=== PATIENT | female | born 1990 ===

== ENCOUNTER 2020-08-31 11:46 | Inpatient (IN) | payer MEDICAID ==
[2020-08-31] MEDS ORDERED: Methylergonovine 0.2 MG/1 ML Amp IM PRN (12:04)
[2020-08-31] MEDS ORDERED: Nalbuphine 10 MG/1 ML Vial IVPUSH PRN (12:04)
[2020-08-31] MEDS ORDERED: Citric Acid/Sodium Citrate Solution 30 ML Cup PO ONE (12:04)
[2020-08-31] MEDS ORDERED: Tranexamic Acid 1,000 MG in Sodium Chloride 0.9% 100 ML IV PRN (12:04)
[2020-08-31] MEDS ORDERED: Sodium Chloride 0.9% 10 ML SDV IV PRN (12:04)
[2020-08-31] MEDS ORDERED: Sodium Chloride 0.9% 2.5 ML Syringe FLUSH PRN (12:04)
[2020-08-31] MEDS ORDERED: Sodium Chloride 0.9% 10 ML Syringe FLUSH PRN (12:04)
[2020-08-31] MEDS ORDERED: ceFAZolin 2 GM in Premix Bag 1 BAG IV ONE (12:04)
[2020-08-31] MEDS ORDERED: Butorphanol 1 MG/ML SDV IVPUSH PRN (12:04)
[2020-08-31] MEDS ORDERED: Lidocaine 1% 50 ML MDV INJECT PRN (12:04)
[2020-08-31] MEDS ORDERED: Water For Irrigation,Sterile 1,000 ML Container IRR PRN (12:04)
[2020-08-31] MEDS ORDERED: Carboprost Tromethamine 250 MCG/1 ML Amp IM PRN (12:04)
[2020-08-31] MEDS ORDERED: Misoprostol 200 MCG Tab PO PRN (12:04)
[2020-08-31] MEDS ORDERED: Succinylcholine/Sod PF 100 MG/5 ML SYRINGE IV ONE (12:15)
[2020-08-31] MEDS ORDERED: Oxytocin/0.9 % Sodium Chloride 30 UNIT/500 ML BAG IV SCH (12:15)
[2020-08-31] MEDS ORDERED: Propofol 200 MG/20 ML SDV ONE (12:15)
[2020-08-31] MEDS ORDERED: Lactated Ringers 1,000 ML IV SCH ×2 (12:15)
[2020-08-31] MEDS ORDERED: fentaNYL 100 MCG/2 ML SDV ONE (12:17)
[2020-08-31] MEDS ORDERED: fentaNYL 250 MCG/5 ML SDV ONE (13:02)
[2020-08-31] MEDS ORDERED: Morphine 2 MG/ML SYRINGE IVPUSH ONE (13:02)
[2020-08-31] MEDS ORDERED: Docusate Sodium 100 MG Cap PO PRN (13:35)
[2020-08-31] MEDS ORDERED: Acetaminophen 500 MG Tab PO PRN (13:35)
[2020-08-31] MEDS ORDERED: Bisacodyl 10 MG Supp RECTAL PRN (13:35)
[2020-08-31] MEDS ORDERED: Witch Hazel Medicated Pads 40/Jar TOP PRN (13:35)
[2020-08-31] MEDS ORDERED: Ibuprofen 800 MG Tab PO PRN (13:35)
[2020-08-31] MEDS ORDERED: Benzocaine/Menthol 20%-0.5% Spray 78 GM Cannister TOP PRN (13:35)
[2020-08-31] MEDS ORDERED: oxyCODONE 5 MG Tab PO PRN (13:35)
[2020-08-31] MEDS ORDERED: Lanolin 100% Cream 7 GM Tube TOP PRN (13:35)
--- NOTE | 2020-08-31 13:45 | PCM.DEL ---
<Fatemeh Esquivel - Last Filed: 08/31/20 13:55> L & D Note - General Info Date of Service: 08/31/20 Mother's Due Date: 09/17/20 - Delivery Note Labor: Spontaneous Delivery Method: Spontaneous Vaginal Delivery-Single Infant Delivery Mode: Spontaneous Presentation: Left Occiput Anterior (MAGED) Nuchal Cord: None Anesthesia Type: Local Anesthetic: Lidocaine (Xylocaine) 1% Plain Local Anesthetic Volume: Other (20) Amniotic Fluid Description: Clear Laceration: 1st Degree, Labial (L labial/paraurethral), Perineal Suture type: Vicryl Suture size: 2-0 Placenta: Intact, Spontaneous Cord: 3 Vessels Estimated Blood Loss: 500 Resuscitation Needed: No [place]: Suctioned, Bulb Syringe, Warmer Used Score 1 min: 7 Score 5 min: 8 - General Info Date of Service: 08/31/20 Admission Dx/Problem (Free Text): Vaginal delivery at 37+4 Functional Status: Reports: Pain Controlled - Review of Systems General: Reports: No Symptoms HEENT: Reports: No Symptoms Pulmonary: Reports: No Symptoms Cardiovascular: Reports: No Symptoms Gastrointestinal: Reports: No Symptoms Genitourinary: Reports: No Symptoms Musculoskeletal: Reports: No Symptoms Skin: Reports: No Symptoms Neurological: Reports: No Symptoms Psychiatric: Reports: No Symptoms - Patient Data Weight - Most Recent: 63.503 kg Lab Results Last 24 Hours: Laboratory Results - last 24 hr 08/31/20 08/31/20 08/31/20 Range/Units 12:20 12:20 12:24 WBC 10.79 (4.0-11.0) K/uL RBC 3.92 L (4.30-5.90) M/uL Hgb 11.9 L (12.0-16.0) g/dL Hct 35.9 L (36.0-46.0) % MCV 91.6 (80.0-98.0) fL MCH 30.4 (27.0-32.0) pg MCHC 33.1 (31.0-37.0) g/dL RDW Std Deviation 47.1 (28.0-62.0) fl RDW Coeff of Alejandro 14 (11.0-15.0) % Plt Count 198 (150-400) K/uL MPV 11.60 (7.40-12.00) fL Nucleated RBC % 0.0 /100WBC Nucleated RBCs # 0 K/uL SARS-CoV-2 RNA (RENU) NEGATIVE (NEGATIVE) Blood Type A POSITIVE Antibody Screen NEGATIVE Med Orders - Current: Current Medications Acetaminophen (Tylenol Extra Strength) 1,000 mg PO Q6H PRN PRN Reason: Pain Benzocaine/Menthol (Dermoplast Pain Relief 20%-0.5% [place]) 78 gm TOP ASDIRECTED PRN PRN Reason: Perineal Comfort Measure Bisacodyl (Dulcolax) 10 mg RECTAL ONETIME PRN PRN Reason: Constipation Butorphanol Tartrate (Stadol) 1 mg IVPUSH Q1H PRN PRN Reason: Pain Carboprost Tromethamine (Hemabate Ds) 250 mcg IM ASDIRECTED PRN PRN Reason: Post Hemorrhage Docusate Sodium (Colace) 100 mg PO BID PRN PRN Reason: Constipation Emollient Ointment (Lansinoh Hpa) 0 gm TOP ASDIRECTED PRN PRN Reason: Sore Nipples Oxytocin/Sodium Chloride (Oxytocin 30 Unit/500 Ml-Ns) 30 unit in 500 mls @ 999 mls/hr IV TITRATE [facility] Last Admin: 08/31/20 12:57 Dose: 999 mls/hr Documented by: Tranexamic Acid 1,000 mg/ (Sodium Chloride) 110 mls @ 660 mls/hr IV ONETIME PRN PRN Reason: Bleeding Lactated Ringer's (Ringers, Lactated) 1,000 mls @ 500 mls/hr IV BOLUS [facility] Last Admin: 08/31/20 12:00 Dose: 500 mls/hr Documented by: Lactated Ringer's (Ringers, Lactated) 1,000 mls @ 150 mls/hr IV ASDIRECTED [facility] Ibuprofen (Motrin) 800 mg PO Q8H PRN PRN Reason: Pain Lidocaine HCl (Xylocaine 1%) 50 ml INJECT ONETIME PRN PRN Reason: Laceration repair Methylergonovine Maleate (Methergine) 0.2 mg IM ASDIRECTED PRN PRN Reason: Post Hemorrhage Misoprostol (Cytotec) 200 mcg PO ONETIME PRN PRN Reason: Post Hemorrhage Nalbuphine HCl (Nubain) 10 mg IVPUSH Q1H PRN PRN Reason: Pain (severe 7-10) Oxycodone HCl (Oxycodone) 5 mg PO Q2H PRN PRN Reason: Pain Sertraline HCl (Zoloft) 75 mg PO DAILY VY Sodium Chloride (Saline Flush) 10 ml FLUSH ASDIRECTED PRN PRN Reason: Keep Vein Open Sodium Chloride (Saline Flush) 2.5 ml FLUSH ASDIRECTED PRN PRN Reason: Keep Vein Open Sodium Chloride (Normal Saline) 10 ml IV ASDIRECTED PRN PRN Reason: IV Use Sterile Water (Sterile Water For Irrigation) 1,000 ml IRR ASDIRECTED PRN PRN Reason: delivery Zaira Torres (Tucks) 1 pad TOP ASDIRECTED PRN PRN Reason: comfort care Discontinued Medications Citric Acid/Sodium Citrate (Bicitra Solution) 30 ml PO ONETIME ONE Stop: 08/31/20 12:05 Fentanyl (Sublimaze) Confirm Administered Dose 100 mcg .ROUTE .STK-MED ONE Stop: 08/31/20 12:18 Fentanyl (Sublimaze) Confirm Administered Dose 250 mcg .ROUTE .STK-MED ONE Stop: 08/31/20 13:03 Cefazolin Sodium/Dextrose 2 gm (/ Premix) 50 mls @ 100 mls/hr IV ONETIME ONE Stop: 08/31/20 12:33 Lidocaine HCl (Xylocaine-Mpf 1%) Confirm Administered Dose 5 ml .ROUTE .STK-MED ONE Stop: 08/31/20 12:15 Morphine Sulfate (Morphine) 2 mg IVPUSH ONETIME ONE Stop: 08/31/20 13:03 Last Admin: 08/31/20 13:14 Dose: 2 mg Documented by: Propofol (Diprivan 20 Ml) Confirm Administered Dose 200 mg .ROUTE .STK-MED ONE Stop: 08/31/20 12:16 - Exam General: Alert, Oriented HEENT: Pupils Equal, Pupils Reactive, EOMI, Mucous Membr. Moist/[place] Neck: Supple Lungs: Clear to Auscultation, Normal Respiratory Effort Cardiovascular: Regular Rate, Regular Rhythm GI/Abdominal Exam: Soft, No Organomegaly, No Distention, No Mass, Other (appropriately tender) (Female) Exam: Other (1st degree hemostatic perineal laceration, left labial/paraurethral laceration repaired) Back Exam: Normal Inspection, Full Range of Motion Extremities: Normal Inspection, Normal Range of Motion, Non-Tender, No Pedal Edema, Normal Capillary Refill Skin: Warm, Dry, Intact Wound/Incisions: Healing Well Neurological: No New Focal Deficit Psy/Mental Status: Alert, Normal Affect, Normal Mood - Problem List & Annotations (1) Vaginal after , delivered, current hospitalization SNOMED Code(s): 939450596 Code(s): O34.219 - MATERNAL CARE FOR UNSP TYPE SCAR FROM PREVIOUS D EL Status: Acute Current Visit: Yes Onset Date: ~08/31/20 - Problem List Review Problem List Initiated/Reviewed/Updated: Yes - Assessment Assessment:: 37+4 delivered via with a viable male , apgars 7 & 8. Mom given 2mg IV morphine post-delivery for pain, and 20cc 1% local lidocaine used prior to labial laceration repair. Mom and baby doing well - skin to skin. - Plan Plan:: 1. Routine pp cares 2. Pain control - ibuprofen/tylenol <Eliza Cartwright - Last Filed: 09/01/20 09:01> L & D Note - Delivery Note Episiotomy Type: None - Patient Data Vitals - Most Recent: Last Vital Signs Temp 36.6 C 09/01/20 08:34 Pulse 81 09/01/20 08:34 Resp 16 09/01/20 08:34 BP 106/72 09/01/20 08:34 Pulse Ox 97 09/01/20 08:34 Lab Results Last 24 Hours: Laboratory Results - last 24 hr 08/31/20 08/31/20 08/31/20 Range/Units 12:20 12:20 12:24 WBC 10.79 (4.0-11.0) K/uL RBC 3.92 L (4.30-5.90) M/uL Hgb 11.9 L (12.0-16.0) g/dL Hct 35.9 L (36.0-46.0) % MCV 91.6 (80.0-98.0) fL MCH 30.4 (27.0-32.0) pg MCHC 33.1 (31.0-37.0) g/dL RDW Std Deviation 47.1 (28.0-62.0) fl RDW Coeff of Alejandro 14 (11.0-15.0) % Plt Count 198 (150-400) K/uL MPV 11.60 (7.40-12.00) fL Nucleated RBC % 0.0 /100WBC Nucleated RBCs # 0 K/uL Cord ABG pH (7.18-7.38) Cord ABG Base Excess (-10--2) Cord VBG pH (7.25-7.45) Cord VBG Base Excess (-10--2) SARS-CoV-2 RNA (RENU) NEGATIVE (NEGATIVE) Blood Type A POSITIVE Antibody Screen NEGATIVE 08/31/20 09/01/20 Range/Units 12:55 05:20 WBC (4.0-11.0) K/uL RBC (4.30-5.90) M/uL Hgb 9.5 L (12.0-16.0) g/dL Hct 28.9 L (36.0-46.0) % MCV (80.0-98.0) fL MCH (27.0-32.0) pg MCHC (31.0-37.0) g/dL RDW Std Deviation (28.0-62.0) fl RDW Coeff of Alejandro (11.0-15.0) % Plt Count (150-400) K/uL MPV (7.40-12.00) fL Nucleated RBC % /100WBC Nucleated RBCs # K/uL Cord ABG pH 7.043 L (7.18-7.38) Cord ABG Base Excess -15 L (-10--2) Cord VBG pH 7.101 L (7.25-7.45) Cord VBG Base Excess -11 L (-10--2) SARS-CoV-2 RNA (RENU) (NEGATIVE) Blood Type Antibody Screen Med Orders - Current: Current Medications Acetaminophen (Tylenol Extra Strength) 1,000 mg PO Q6H PRN PRN Reason: Pain Benzocaine/Menthol (Dermoplast Pain Relief 20%-0.5% [place]) 78 gm TOP ASDIRECTED PRN PRN Reason: Perineal Comfort Measure Last Admin: 08/31/20 18:33 Dose: 1 canister Documented by: Bisacodyl (Dulcolax) 10 mg RECTAL ONETIME PRN PRN Reason: Constipation Butorphanol Tartrate (Stadol) 1 mg IVPUSH Q1H PRN PRN Reason: Pain Carboprost Tromethamine (Hemabate Ds) 250 mcg IM ASDIRECTED PRN PRN Reason: Post Hemorrhage Docusate Sodium (Colace) 100 mg PO BID PRN PRN Reason: Constipation Last Admin: 09/01/20 08:43 Dose: 100 mg Documented by: Emollient Ointment (Lansinoh Hpa) 0 gm TOP ASDIRECTED PRN PRN Reason: Sore Nipples Oxytocin/Sodium Chloride (Oxytocin 30 Unit/500 Ml-Ns) 30 unit in 500 mls @ 999 mls/hr IV TITRATE [facility] Last Admin: 08/31/20 12:57 Dose: 999 mls/hr Documented by: Tranexamic Acid 1,000 mg/ (Sodium Chloride) 110 mls @ 660 mls/hr IV ONETIME PRN PRN Reason: Bleeding Lactated Ringer's (Ringers, Lactated) 1,000 mls @ 500 mls/hr IV BOLUS [facility] Last Admin: 08/31/20 12:00 Dose: 500 mls/hr Documented by: Lactated Ringer's (Ringers, Lactated) 1,000 mls @ 150 mls/hr IV ASDIRECTED [facility] Ibuprofen (Motrin) 800 mg PO Q8H PRN PRN Reason: Pain Last Admin: 08/31/20 14:33 Dose: 800 mg Documented by: Lidocaine HCl (Xylocaine 1%) 50 ml INJECT ONETIME PRN PRN Reason: Laceration repair Methylergonovine Maleate (Methergine) 0.2 mg IM ASDIRECTED PRN PRN Reason: Post Hemorrhage Misoprostol (Cytotec) 200 mcg PO ONETIME PRN PRN Reason: Post Hemorrhage Nalbuphine HCl (Nubain) 10 mg IVPUSH Q1H PRN PRN Reason: Pain (severe 7-10) Oxycodone HCl (Oxycodone) 5 mg PO Q2H PRN PRN Reason: Pain Sertraline HCl (Zoloft) 75 mg PO DAILY [facility] Last Admin: 09/01/20 08:43 Dose: 75 mg Documented by: Sodium Chloride (Saline Flush) 10 ml FLUSH ASDIRECTED PRN PRN Reason: Keep Vein Open Sodium Chloride (Saline Flush) 2.5 ml FLUSH ASDIRECTED PRN PRN Reason: Keep Vein Open Sodium Chloride (Normal Saline) 10 ml IV ASDIRECTED PRN PRN Reason: IV Use Sterile Water (Sterile Water For Irrigation) 1,000 ml IRR ASDIRECTED PRN PRN Reason: delivery Zaira Torres ([place]) 1 pad TOP ASDIRECTED PRN PRN Reason: comfort care Last Admin: 08/31/20 18:33 Dose: 1 tub Documented by: Discontinued Medications Citric Acid/Sodium Citrate (Bicitra Solution) 30 ml PO ONETIME ONE Stop: 08/31/20 12:05 Fentanyl (Sublimaze) Confirm Administered Dose 100 mcg .ROUTE .STK-MED ONE Stop: 08/31/20 12:18 Fentanyl (Sublimaze) Confirm Administered Dose 250 mcg .ROUTE .STK-MED ONE Stop: 08/31/20 13:03 Cefazolin Sodium/Dextrose 2 gm (/ Premix) 50 mls @ 100 mls/hr IV ONETIME ONE Stop: 08/31/20 12:33 Lidocaine HCl (Xylocaine-Mpf 1%) Confirm Administered Dose 5 ml .ROUTE .STK-MED ONE Stop: 08/31/20 12:15 Morphine Sulfate (Morphine) 2 mg IVPUSH ONETIME ONE Stop: 08/31/20 13:03 Last Admin: 08/31/20 13:14 Dose: 2 mg Documented by: Propofol (Diprivan 20 Ml) Confirm Administered Dose 200 mg .ROUTE .STK-MED ONE Stop: 08/31/20 12:16 - Problem List & Annotations (1) Vaginal after , delivered, current hospitalization SNOMED Code(s): 141744277 Code(s): O34.219 - MATERNAL CARE FOR UNSP TYPE SCAR FROM PREVIOUS DEL Status: Acute Current Visit: Yes Onset Date: ~08/31/20 - My Orders Last 24 Hours: My Active Orders 08/31/20 Lunch Regular Diet [DIET] 08/31/20 12:04 Butorphanol [Stadol] 1 mg IVPUSH Q1H PRN Carboprost Tromethamine [Hemabate DS] 250 mcg IM ASDIRECTED PRN Lidocaine 1% [Xylocaine 1%] 50 ml INJECT ONETIME PRN Methylergonovine [Methergine] 0.2 mg IM ASDIRECTED PRN Nalbuphine [Nubain] 10 mg IVPUSH Q1H PRN Sodium Chloride 0.9% [Normal Saline] 10 ml IV ASDIRECTED PRN Sodium Chloride 0.9% [Saline Flush] 10 ml FLUSH ASDIRECTED PRN Sodium Chloride 0.9% [Saline Flush] 2.5 ml FLUSH ASDIRECTED PRN Tranexamic Acid [Cyklokapron] 1,000 mg Sodium Chloride 0.9% [Normal Saline] 100 ml IV ONETIME Water For Irrigation,Sterile [Sterile Water for Irrigation] 1,000 ml IRR ASDIRECTED PRN miSOPROStoL [Cytotec] 200 mcg PO ONETIME PRN Resuscitation Status Routine 08/31/20 12:05 Patient Status [ADT] Routine Vital Signs [RC] PER UNIT ROUTINE Scalp Electrode [WOMSER] Per Unit Routine Peripheral IV Insertion Adult [OM.PC] Routine Peripheral IV Insertion Adult [OM.PC] Routine Schedule Procedure [COMM] Per Unit Routine 08/31/20 12:09 Notify Provider Vital Signs [RC] PRN 08/31/20 12:15 Lactated Ringers [Ringers, Lactated] 1,000 ml IV ASDIRECTED Lactated Ringers [Ringers, Lactated] 1,000 ml IV BOLUS Oxytocin/0.9 % Sodium Chloride [Oxytocin 30 Unit/500 ML-NS] 30 unit in 500 ml IV TITRATE 08/31/20 12:20 RPR (SYPHILIS SERO) W/ RFLX [REF] Routine 08/31/20 13:35 Patient Status [ADT] Routine May Shower [RC] ASDIRECTED Notify Provider Vital Signs [RC] ASDIRECTED Up ad Lila [RC] ASDIRECTED Acetaminophen [Tylenol Extra Strength] 1,000 mg PO Q6H PRN Benzocaine/Menthol [Dermoplast Pain Relief 20%-0.5% [place]] 78 gm TOP ASDIRECTED PRN Docusate Sodium [Colace] 100 mg PO BID PRN Ibuprofen [Motrin] 800 mg PO Q8H PRN Lanolin [Lansinoh HPA] See Dose Instructions TOP ASDIRECTED PRN bisacodyL [Dulcolax] 10 mg RECTAL ONETIME PRN oxyCODONE 5 mg PO Q2H PRN witch Guilherme [Tucks] 1 pad TOP ASDIRECTED PRN Assess Lochia [WOMSER] Per Unit Routine Assess Uterine Involution [WOMSER] Per Unit Routine Peripheral IV Discontinue [OM.PC] Routine 08/31/20 13:36 Ice Therapy [OM.PC] Per Unit Routine Perineal Care [OM.PC] Per Unit Routine Sitz Bath [OM.PC] Per Unit Routine 09/01/20 09:00 Sertraline [Zoloft] 75 mg PO DAILY - Plan Plan:: I have reviewed and agree with the above. Patient presented in labor at 8cm dilated. Declined repeat section and desired trial of labor after . Successful vaginal after .
--- NOTE | 2020-08-31 14:50 | PCM.SN.2 ---
- Free Text/Narrative Note: Patient seen by Dr. Paz, awaiting his preanesthesia assessment. We were called for emergency section, but Dr. Cartwright ruptured patient's membranes, and patient delivered vaginally. Anesthesia and OR staff was on standby, and immediately available. Time: [id number]
--- NOTE | 2020-08-31 15:46 | OR ---
SURGEON: Eliza Cartwright MD DATE OF PROCEDURE: 08/31/2020 PREOPERATIVE DIAGNOSES: 1. A 30-year-old G3, P1-0-1-1 at 37 weeks and 4 days' gestation. 2. Labor. 3. History of delivery x1. 4. Group B Streptococcus negative. POSTOPERATIVE DIAGNOSES: 1. A 30-year-old G3, P1-0-1-1 at 37 weeks and 4 days' gestation. 2. Labor. 3. History of delivery x1. 4. Group B Streptococcus negative. PROCEDURE: Vaginal after delivery. PRIMARY SURGEON: Eliza Cartwright MD ANESTHESIA: Lidocaine for repair. ESTIMATED BLOOD LOSS: 700 mL. FINDINGS: Live male in cephalic presentation. scores 7 and 8 at one and five minutes respectively. Weight 2770g. First-degree perineal and left periurethral lacerations. Fundus firm and below the umbilicus with minimal bleeding. INDICATIONS: This is a 30-year-old G3, P1-0-1-1 who presented at 37 weeks and 4 days gestation complaining of contractions and vaginal bleeding. Upon presentation, her cervix was found to be 8 cm dilated with intact membranes, and she was nella every 2 to 3 minutes. She was admitted to Labor and Delivery. The risks and benefits of trial of labor after and repeat delivery were reviewed with the patient. Per Anesthesia if the patient needed to proceed with delivery, she would need general anesthesia. After discussion of the risks including 1% chance of uterine rupture, the patient decided actually to proceed with vaginal delivery. Artificial rupture of membranes occurred with clear fluid noted. She was 9 cm dilated. She progressed to complete cervical dilation. DESCRIPTION OF PROCEDURE: The patient began pushing with the 's head at 0 station, and with contractions and pushing, the heart rate was noted to be in the 70s, however, would recover to baseline between contractions. The patient was in pain, and we discussed that she was unable to receive IV pain medications due to imminent delivery. She was encouraged to push and after several minutes began pushing adequately. Over the next 2 contractions, the patient pushed and delivered a live male . Head was delivered followed quickly by the shoulders and remainder of the body. Infant was placed on maternal abdomen. After approximately 60 seconds, the cord was clamped and cut, and the infant was taken to the warmer for evaluation by the nursing tube sizer operator. 2 mg of morphine IV were given to the patient. The perineum was inspected, and the above lacerations were noted. These were infiltrated with 1% lidocaine and repaired to anatomy and hemostasis. The fundus was firm and below the umbilicus with minimal bleeding. The patient and infant tolerated the delivery well. [id number] / MODL /[id number] [id number]
--- NOTE | 2020-09-01 08:32 | PCM.PNPP ---
<Fatemeh Esquivel - Last Filed: 09/01/20 08:34> - General Info Date of Service: 09/01/20 Admission Dx/Problem (Free Text): Vaginal delivery Subjective Update: Patient doing well this am. Pain controlled with PO pain meds. Voiding/lochia appropriate. Ambulating without difficulty. BF/pumping - doing fair. Would like to go home today. Functional Status: Reports: Pain Controlled - Review of Systems General: Reports: No Symptoms HEENT: Reports: No Symptoms Pulmonary: Reports: No Symptoms Cardiovascular: Reports: No Symptoms Gastrointestinal: Reports: No Symptoms Genitourinary: Reports: No Symptoms Musculoskeletal: Reports: No Symptoms Skin: Reports: No Symptoms Neurological: Reports: No Symptoms Psychiatric: Reports: No Symptoms - General Info Date of Service: 09/01/20 - Patient Data Vital Signs - Most Recent: Last Vital Signs Temp 97.2 F 09/01/20 04:11 Pulse 95 09/01/20 04:11 Resp 16 09/01/20 04:11 BP 116/73 09/01/20 04:11 Pulse Ox 97 09/01/20 04:11 Weight - Most Recent: 86.183 kg Lab Results - Last 24 Hours: Laboratory Results - last 24 hr 08/31/20 08/31/20 08/31/20 Range/Units 12:20 12:20 12:24 WBC 10.79 (4.0-11.0) K/uL RBC 3.92 L (4.30-5.90) M/uL Hgb 11.9 L (12.0-16.0) g/dL Hct 35.9 L (36.0-46.0) % MCV 91.6 (80.0-98.0) fL MCH 30.4 (27.0-32.0) pg MCHC 33.1 (31.0-37.0) g/dL RDW Std Deviation 47.1 (28.0-62.0) fl RDW Coeff of Alejandro 14 (11.0-15.0) % Plt Count 198 (150-400) K/uL MPV 11.60 (7.40-12.00) fL Nucleated RBC % 0.0 /100WBC Nucleated RBCs # 0 K/uL Cord ABG pH (7.18-7.38) Cord ABG Base Excess (-10--2) Cord VBG pH (7.25-7.45) Cord VBG Base Excess (-10--2) SARS-CoV-2 RNA (RENU) NEGATIVE (NEGATIVE) Blood Type A POSITIVE Antibody Screen NEGATIVE 08/31/20 09/01/20 Range/Units 12:55 05:20 WBC (4.0-11.0) K/uL RBC (4.30-5.90) M/uL Hgb 9.5 L (12.0-16.0) g/dL Hct 28.9 L (36.0-46.0) % MCV (80.0-98.0) fL MCH (27.0-32.0) pg MCHC (31.0-37.0) g/dL RDW Std Deviation (28.0-62.0) fl RDW Coeff of Alejandro (11.0-15.0) % Plt Count (150-400) K/uL MPV (7.40-12.00) fL Nucleated RBC % /100WBC Nucleated RBCs # K/uL Cord ABG pH 7.043 L (7.18-7.38) Cord ABG Base Excess -15 L (-10--2) Cord VBG pH 7.101 L (7.25-7.45) Cord VBG Base Excess -11 L (-10--2) SARS-CoV-2 RNA (RENU) (NEGATIVE) Blood Type Antibody Screen Med Orders - Current: Current Medications Acetaminophen (Tylenol Extra Strength) 1,000 mg PO Q6H PRN PRN Reason: Pain Benzocaine/Menthol (Dermoplast Pain Relief 20%-0.5% [place]) 78 gm TOP ASDIRECTED PRN PRN Reason: Perineal Comfort Measure Last Admin: 08/31/20 18:33 Dose: 1 canister Documented by: Bisacodyl (Dulcolax) 10 mg RECTAL ONETIME PRN PRN Reason: Constipation Butorphanol Tartrate (Stadol) 1 mg IVPUSH Q1H PRN PRN Reason: Pain Carboprost Tromethamine (Hemabate Ds) 250 mcg IM ASDIRECTED PRN PRN Reason: Post Hemorrhage Docusate Sodium (Colace) 100 mg PO BID PRN PRN Reason: Constipation Emollient Ointment (Lansinoh Hpa) 0 gm TOP ASDIRECTED PRN PRN Reason: Sore Nipples Oxytocin/Sodium Chloride (Oxytocin 30 Unit/500 Ml-Ns) 30 unit in 500 mls @ 999 mls/hr IV TITRATE [facility] Last Admin: 08/31/20 12:57 Dose: 999 mls/hr Documented by: Tranexamic Acid 1,000 mg/ (Sodium Chloride) 110 mls @ 660 mls/hr IV ONETIME PRN PRN Reason: Bleeding Lactated Ringer's (Ringers, Lactated) 1,000 mls @ 500 mls/hr IV BOLUS [facility] Last Admin: 08/31/20 12:00 Dose: 500 mls/hr Documented by: Lactated Ringer's (Ringers, Lactated) 1,000 mls @ 150 mls/hr IV ASDIRECTED [facility] Ibuprofen (Motrin) 800 mg PO Q8H PRN PRN Reason: Pain Last Admin: 08/31/20 14:33 Dose: 800 mg Documented by: Lidocaine HCl (Xylocaine 1%) 50 ml INJECT ONETIME PRN PRN Reason: Laceration repair Methylergonovine Maleate (Methergine) 0.2 mg IM ASDIRECTED PRN PRN Reason: Post Hemorrhage Misoprostol (Cytotec) 200 mcg PO ONETIME PRN PRN Reason: Post Hemorrhage Nalbuphine HCl (Nubain) 10 mg IVPUSH Q1H PRN PRN Reason: Pain (severe 7-10) Oxycodone HCl (Oxycodone) 5 mg PO Q2H PRN PRN Reason: Pain Sertraline HCl (Zoloft) 75 mg PO DAILY [facility] Sodium Chloride (Saline Flush) 10 ml FLUSH ASDIRECTED PRN PRN Reason: Keep Vein Open Sodium Chloride (Saline Flush) 2.5 ml FLUSH ASDIRECTED PRN PRN Reason: Keep Vein Open Sodium Chloride (Normal Saline) 10 ml IV ASDIRECTED PRN PRN Reason: IV Use Sterile Water (Sterile Water For Irrigation) 1,000 ml IRR ASDIRECTED PRN PRN Reason: delivery Witch Melissa (Tucks) 1 pad TOP ASDIRECTED PRN PRN Reason: comfort care Last Admin: 08/31/20 18:33 Dose: 1 tub Documented by: Discontinued Medications Citric Acid/Sodium Citrate (Bicitra Solution) 30 ml PO ONETIME ONE Stop: 08/31/20 12:05 Fentanyl (Sublimaze) Confirm Administered Dose 100 mcg .ROUTE .STK-MED ONE Stop: 08/31/20 12:18 Fentanyl (Sublimaze) Confirm Administered Dose 250 mcg .ROUTE .STK-MED ONE Stop: 08/31/20 13:03 Cefazolin Sodium/Dextrose 2 gm (/ Premix) 50 mls @ 100 mls/hr IV ONETIME ONE Stop: 08/31/20 12:33 Lidocaine HCl (Xylocaine-Mpf 1%) Confirm Administered Dose 5 ml .ROUTE .STK-MED ONE Stop: 08/31/20 12:15 Morphine Sulfate (Morphine) 2 mg IVPUSH ONETIME ONE Stop: 08/31/20 13:03 Last Admin: 08/31/20 13:14 Dose: 2 mg Documented by: Propofol (Diprivan 20 Ml) Confirm Administered Dose 200 mg .ROUTE .STK-MED ONE Stop: 08/31/20 12:16 - Interaction Infant Disposition, : [place] in Room with Family Interaction: Holding Infant Feeding: Attempted ; Nursed Fair/Poor Support Person: - Recovery Exam Fundal Tone: Firm Fundal Level: 1 Fingerbreadths Below Umbilicus Fundal Placement: Midline Lochia Amount: Scant Lochia Color: Rubra/Red Perineum Description: Intact, Minimal Bruising/Swelling Bladder Status: Voiding Urinary Elimination: Voided - Exam General: Alert, Oriented HEENT: Pupils Equal Neck: Supple Lungs: Clear to Auscultation, Normal Respiratory Effort Cardiovascular: Regular Rate, Regular Rhythm GI/Abdominal Exam: Soft, No Organomegaly, No Distention, No Mass, Other (appropriately tender) Extremities: Normal Inspection, Normal Range of Motion, Non-Tender, No Pedal Edema, Normal Capillary Refill Skin: Warm, Dry, Intact Wound/Incisions: Healing Well Neurological: No New Focal Deficit Psy/Mental Status: Alert, Normal Affect, Normal Mood - Problem List & Annotations (1) Vaginal after , delivered, current hospitalization SNOMED Code(s): 311366868 Code(s): O34.219 - MATERNAL CARE FOR UNSP TYPE SCAR FROM PREVIOUS DEL Status: Acute Current Visit: Yes Onset Date: ~08/31/20 - Problem List Review Problem List Initiated/Reviewed/Updated: Yes - Assessment Assessment:: 37+4 delivered via with a viable male , apgars 7 & 8. - Plan Plan:: 1. Routine pp cares - medically stable, may d/c to home today. <Eliza Cartwright - Last Filed: 09/01/20 09:00> - Patient Data Vital Signs - Most Recent: Last Vital Signs Temp 36.6 C 09/01/20 08:34 Pulse 81 09/01/20 08:34 Resp 16 09/01/20 08:34 BP 106/72 09/01/20 08:34 Pulse Ox 97 09/01/20 08:34 Lab Results - Last 24 Hours: Laboratory Results - last 24 hr 08/31/20 08/31/20 08/31/20 Range/Units 12:20 12:20 12:24 WBC 10.79 (4.0-11.0) K/uL RBC 3.92 L (4.30-5.90) M/uL Hgb 11.9 L (12.0-16.0) g/dL Hct 35.9 L (36.0-46.0) % MCV 91.6 (80.0-98.0) fL MCH 30.4 (27.0-32.0) pg MCHC 33.1 (31.0-37.0) g/dL RDW Std Deviation 47.1 (28.0-62.0) fl RDW Coeff of Alejandro 14 (11.0-15.0) % Plt Count 198 (150-400) K/uL MPV 11.60 (7.40-12.00) fL Nucleated RBC % 0.0 /100WBC Nucleated RBCs # 0 K/uL Cord ABG pH (7.18-7.38) Cord ABG Base Excess (-10--2) Cord VBG pH (7.25-7.45) Cord VBG Base Excess (-10--2) SARS-CoV-2 RNA (RENU) NEGATIVE (NEGATIVE) Blood Type A POSITIVE Antibody Screen NEGATIVE 08/31/20 09/01/20 Range/Units 12:55 05:20 WBC (4.0-11.0) K/uL RBC (4.30-5.90) M/uL Hgb 9.5 L (12.0-16.0) g/dL Hct 28.9 L (36.0-46.0) % MCV (80.0-98.0) fL MCH (27.0-32.0) pg MCHC (31.0-37.0) g/dL RDW Std Deviation (28.0-62.0) fl RDW Coeff of Alejandro (11.0-15.0) % Plt Count (150-400) K/uL MPV (7.40-12.00) fL Nucleated RBC % /100WBC Nucleated RBCs # K/uL Cord ABG pH 7.043 L (7.18-7.38) Cord ABG Base Excess -15 L (-10--2) Cord VBG pH 7.101 L (7.25-7.45) Cord VBG Base Excess -11 L (-10--2) SARS-CoV-2 RNA (RENU) (NEGATIVE) Blood Type Antibody Screen Med Orders - Current: Current Medications Acetaminophen (Tylenol Extra Strength) 1,000 mg PO Q6H PRN PRN Reason: Pain Benzocaine/Menthol (Dermoplast Pain Relief 20%-0.5% [place]) 78 gm TOP ASDIRECTED PRN PRN Reason: Perineal Comfort Measure Last Admin: 08/31/20 18:33 Dose: 1 canister Documented by: Bisacodyl (Dulcolax) 10 mg RECTAL ONETIME PRN PRN Reason: Constipation Butorphanol Tartrate (Stadol) 1 mg IVPUSH Q1H PRN PRN Reason: Pain Carboprost Tromethamine (Hemabate Ds) 250 mcg IM ASDIRECTED PRN PRN Reason: Post Hemorrhage Docusate Sodium (Colace) 100 mg PO BID PRN PRN Reason: Constipation Last Admin: 09/01/20 08:43 Dose: 100 mg Documented by: Emollient Ointment (Lansinoh Hpa) 0 gm TOP ASDIRECTED PRN PRN Reason: Sore Nipples Oxytocin/Sodium Chloride (Oxytocin 30 Unit/500 Ml-Ns) 30 unit in 500 mls @ 999 mls/hr IV TITRATE [facility] Last Admin: 08/31/20 12:57 Dose: 999 mls/hr Documented by: Tranexamic Acid 1,000 mg/ (Sodium Chloride) 110 mls @ 660 mls/hr IV ONETIME PRN PRN Reason: Bleeding Lactated Ringer's (Ringers, Lactated) 1,000 mls @ 500 mls/hr IV BOLUS [facility] Last Admin: 08/31/20 12:00 Dose: 500 mls/hr Documented by: Lactated Ringer's (Ringers, Lactated) 1,000 mls @ 150 mls/hr IV ASDIRECTED [facility] Ibuprofen (Motrin) 800 mg PO Q8H PRN PRN Reason: Pain Last Admin: 08/31/20 14:33 Dose: 800 mg Documented by: Lidocaine HCl (Xylocaine 1%) 50 ml INJECT ONETIME PRN PRN Reason: Laceration repair Methylergonovine Maleate (Methergine) 0.2 mg IM ASDIRECTED PRN PRN Reason: Post Hemorrhage Misoprostol (Cytotec) 200 mcg PO ONETIME PRN PRN Reason: Post Hemorrhage Nalbuphine HCl (Nubain) 10 mg IVPUSH Q1H PRN PRN Reason: Pain (severe 7-10) Oxycodone HCl (Oxycodone) 5 mg PO Q2H PRN PRN Reason: Pain Sertraline HCl (Zoloft) 75 mg PO DAILY [facility] Last Admin: 09/01/20 08:43 Dose: 75 mg Documented by: Sodium Chloride (Saline Flush) 10 ml FLUSH ASDIRECTED PRN PRN Reason: Keep Vein Open Sodium Chloride (Saline Flush) 2.5 ml FLUSH ASDIRECTED PRN PRN Reason: Keep Vein Open Sodium Chloride (Normal Saline) 10 ml IV ASDIRECTED PRN PRN Reason: IV Use Sterile Water (Sterile Water For Irrigation) 1,000 ml IRR ASDIRECTED PRN PRN Reason: delivery Zaira Torres (Tucks) 1 pad TOP ASDIRECTED PRN PRN Reason: comfort care Last Admin: 08/31/20 18:33 Dose: 1 tub Documented by: Discontinued Medications Citric Acid/Sodium Citrate (Bicitra Solution) 30 ml PO ONETIME ONE Stop: 08/31/20 12:05 Fentanyl (Sublimaze) Confirm Administered Dose 100 mcg .ROUTE .STK-MED ONE Stop: 08/31/20 12:18 Fentanyl (Sublimaze) Confirm Administered Dose 250 mcg .ROUTE .STK-MED ONE Stop: 08/31/20 13:03 Cefazolin Sodium/Dextrose 2 gm (/ Premix) 50 mls @ 100 mls/hr IV ONETIME ONE Stop: 08/31/20 12:33 Lidocaine HCl (Xylocaine-Mpf 1%) Confirm Administered Dose 5 ml .ROUTE .STK-MED ONE Stop: 08/31/20 12:15 Morphine Sulfate (Morphine) 2 mg IVPUSH ONETIME ONE Stop: 08/31/20 13:03 Last Admin: 08/31/20 13:14 Dose: 2 mg Documented by: Propofol (Diprivan 20 Ml) Confirm Administered Dose 200 mg .ROUTE .STK-MED ONE Stop: 08/31/20 12:16 - Problem List & Annotations (1) Vaginal after , delivered, current hospitalization SNOMED Code(s): 088065956 Code(s): O34.219 - MATERNAL CARE FOR UNSP TYPE SCAR FROM PREVIOUS DEL Status: Acute Current Visit: Yes Onset Date: ~08/31/20 - My Orders Last 24 Hours: My Active Orders 08/31/20 Lunch Regular Diet [DIET] 08/31/20 12:04 Butorphanol [Stadol] 1 mg IVPUSH Q1H PRN Carboprost Tromethamine [Hemabate DS] 250 mcg IM ASDIRECTED PRN Lidocaine 1% [Xylocaine 1%] 50 ml INJECT ONETIME PRN Methylergonovine [Methergine] 0.2 mg IM ASDIRECTED PRN Nalbuphine [Nubain] 10 mg IVPUSH Q1H PRN Sodium Chloride 0.9% [Normal Saline] 10 ml IV ASDIRECTED PRN Sodium Chloride 0.9% [Saline Flush] 10 ml FLUSH ASDIRECTED PRN Sodium Chloride 0.9% [Saline Flush] 2.5 ml FLUSH ASDIRECTED PRN Tranexamic Acid [Cyklokapron] 1,000 mg Sodium Chloride 0.9% [Normal Saline] 100 ml IV ONETIME Water For Irrigation,Sterile [Sterile Water for Irrigation] 1,000 ml IRR ASDIRECTED PRN miSOPROStoL [Cytotec] 200 mcg PO ONETIME PRN Resuscitation Status Routine 08/31/20 12:05 Patient Status [ADT] Routine Vital Signs [RC] PER UNIT ROUTINE Scalp Electrode [WOMSER] Per Unit Routine Peripheral IV Insertion Adult [OM.PC] Routine Peripheral IV Insertion Adult [OM.PC] Routine Schedule Procedure [COMM] Per Unit Routine 08/31/20 12:09 Notify Provider Vital Signs [RC] PRN 08/31/20 12:15 Lactated Ringers [Ringers, Lactated] 1,000 ml IV ASDIRECTED Lactated Ringers [Ringers, Lactated] 1,000 ml IV BOLUS Oxytocin/0.9 % Sodium Chloride [Oxytocin 30 Unit/500 ML-NS] 30 unit in 500 ml IV TITRATE 08/31/20 12:20 RPR (SYPHILIS SERO) W/ RFLX [REF] Routine 08/31/20 13:35 Patient Status [ADT] Routine May Shower [RC] ASDIRECTED Notify Provider Vital Signs [RC] ASDIRECTED Up ad Lila [RC] ASDIRECTED Acetaminophen [Tylenol Extra Strength] 1,000 mg PO Q6H PRN Benzocaine/Menthol [Dermoplast Pain Relief 20%-0.5% [place]] 78 gm TOP ASDIRECTED PRN Docusate Sodium [Colace] 100 mg PO BID PRN Ibuprofen [Motrin] 800 mg PO Q8H PRN Lanolin [Lansinoh HPA] See Dose Instructions TOP ASDIRECTED PRN bisacodyL [Dulcolax] 10 mg RECTAL ONETIME PRN oxyCODONE 5 mg PO Q2H PRN witch Melissa [Tucks] 1 pad TOP ASDIRECTED PRN Assess Lochia [WOMSER] Per Unit Routine Assess Uterine Involution [WOMSER] Per Unit Routine Peripheral IV Discontinue [OM.PC] Routine 08/31/20 13:36 Ice Therapy [OM.PC] Per Unit Routine Perineal Care [OM.PC] Per Unit Routine Sitz Bath [OM.PC] Per Unit Routine 09/01/20 09:00 Sertraline [Zoloft] 75 mg PO DAILY - Plan Plan:: I have reviewed and agree with the above. 30yo s/p at 37w4d, PPD#1. Patient desires discharge home today if infant cleared by Senior Drupal Developer. Reviewed discharge instructions/precautions. All questions answered.
[2020-09-01] MEDS ORDERED: Sertraline 50 MG Tab PO SCH (09:00)
== END 2020-09-01 16:25 | disposition home or self-care (01) | DRG 807 ==
LOC: MW.OBCHECK 11:46 → MW.OB 11:51 → MW.OBCHECK 12:45 → MW.OB 12:46 → OBSVTOIN 12:55 → MW.OB 19:56
PROVIDERS: ADMIT Obstetrics & Gynecology; ATTEND Obstetrics & Gynecology
PROC: 10E0XZZ Delivery of Products of Conception, External Approach (ICD-10-PCS; principal; 2020-08-31)
PROC: 10907ZC Drainage of Amniotic Fluid, Therapeutic from Products of Conception, Via Natural or Artificial Opening (ICD-10-PCS; 2020-08-31)
PROC: 0HQ9XZZ Repair Perineum Skin, External Approach (ICD-10-PCS; 2020-08-31)
DX: O34.211 Maternal care for low transverse scar from previous cesarean delivery (principal); Z37.0 Single live birth; Z3A.37 37 weeks gestation of pregnancy; O70.0 First degree perineal laceration during delivery; Z20.822 Contact with and (suspected) exposure to COVID-19
CPT/HCPCS: 36415; 59409; 82803; 85014; 85018; 85027; 86592; 86850; 86900; 86901; A9270-GY; J0330; J2270; J2590; J2704; J3010; J7120; U0002